=== PATIENT | male | born 1955 | race Caucasian/White ===

== ENCOUNTER → 2022-12-19 | Day surgery (SDC) | payer MEDICARE ==
[~2022-12-19] VITALS: Ht 180.3 cm; Wt 152.4 kg
[~2022-12-19] MED LIST: DAILY VALUE1 EACH PO; DICLOFENAC SOD75 MG PO; GLUCOSAMINE CH1 EAC1 PO; NEXIUM20 M1 PO; TYLENOL EXTRA500 MG PO
[2022-12-19 10:24] VITALS: BP 176/73
[2022-12-19 10:33] VITALS: BP 157/71
[2022-12-19 10:55] VITALS: BP 150/72
== END ==
LOC: SDC 12-13 14:00
PROVIDERS: ATTEND Ophthalmology
DX: H25.812 Combined forms of age-related cataract, left eye (principal); K21.9 Gastro-esophageal reflux disease without esophagitis; M19.90 Unspecified osteoarthritis, unspecified site; Z90.89 Acquired absence of other organs

== ENCOUNTER → 2023-01-23 | Day surgery (SDC) | payer MEDICARE ==
[~2023-01-23] VITALS: Ht 177.8 cm; Wt 149.7 kg
[2023-01-23 08:45] VITALS: BP 160/91
[2023-01-23 09:38] VITALS: BP 182/74
[2023-01-23 09:49] VITALS: BP 161/79
[2023-01-23 09:56] VITALS: BP 162/75
[2023-01-23 10:06] VITALS: BP 161/76
== END ==
LOC: SDC 01-18 14:00
PROVIDERS: ATTEND Ophthalmology
DX: H25.811 Combined forms of age-related cataract, right eye (principal); K21.9 Gastro-esophageal reflux disease without esophagitis; E66.9 Obesity, unspecified